=== PATIENT | female | born 1950 | race African-American/Black ===

== ENCOUNTER 2016-12-28 09:48 | Outpatient (CLI) | payer OTHER, BC | END 2016-12-28 20:12 | disposition home or self-care (01) | LOC: SMA 09:48 | DX: Z12.31 Encounter for screening mammogram for malignant neoplasm of breast (principal); M81.0 Age-related osteoporosis without current pathological fracture | CPT/HCPCS: G0202 ==

== ENCOUNTER 2018-03-30 09:07 | Outpatient (CLI) | payer OTHER, BC | END 2018-03-30 19:14 | disposition home or self-care (01) | LOC: SMA 09:07 | DX: Z12.31 Encounter for screening mammogram for malignant neoplasm of breast (principal) | CPT/HCPCS: 77067 ==

== ENCOUNTER 2019-04-04 09:51 | Outpatient (CLI) | payer OTHER, BC | END 2019-04-04 19:47 | disposition home or self-care (01) | LOC: SMA 09:51 | DX: Z12.31 Encounter for screening mammogram for malignant neoplasm of breast (principal) | CPT/HCPCS: 77067 ==

== ENCOUNTER 2020-05-23 09:51 | Outpatient (CLI) | payer OTHER, BC | END 2020-05-24 15:05 | disposition home or self-care (01) | LOC: SMA 09:51 | DX: Z12.31 Encounter for screening mammogram for malignant neoplasm of breast (principal) | CPT/HCPCS: 77067 ==

== ENCOUNTER 2020-09-17 10:14 | Outpatient (CLI) | payer OTHER, BC | END 2020-09-17 20:22 | disposition home or self-care (01) | LOC: SUS 10:14 | DX: N39.0 Urinary tract infection, site not specified (principal) | CPT/HCPCS: 76770 ==

== ENCOUNTER 2021-08-29 09:16 | Outpatient (CLI) | payer OTHER, BC | END 2021-08-29 17:00 | disposition home or self-care (01) | LOC: SMA 09:16 | PROVIDERS: ATTEND Family Medicine | DX: Z12.31 Encounter for screening mammogram for malignant neoplasm of breast (principal) | CPT/HCPCS: 77067 ==

== ENCOUNTER 2022-01-22 12:51 | Outpatient (CLI) | payer OTHER, BC | END 2022-01-22 20:09 | disposition home or self-care (01) | LOC: SRD 12:51 | PROVIDERS: ATTEND Family Medicine | DX: M21.6X1 Other acquired deformities of right foot (principal); M79.671 Pain in right foot ==

== ENCOUNTER 2022-11-19 09:48 | Outpatient (CLI) | payer OTHER, BC | END 2022-11-19 19:26 | disposition home or self-care (01) | LOC: SMA 09:48 | PROVIDERS: ATTEND Family Medicine | DX: Z12.31 Encounter for screening mammogram for malignant neoplasm of breast (principal) | CPT/HCPCS: 77067 ==

== ENCOUNTER 2023-12-02 10:45 | Outpatient (CLI) | payer OTHER, BC | END 2023-12-02 18:34 | disposition home or self-care (01) | LOC: SMA 10:45 | PROVIDERS: ATTEND Family Medicine | DX: Z01.818 Encounter for other preprocedural examination (principal); Z12.31 Encounter for screening mammogram for malignant neoplasm of breast; M17.12 Unilateral primary osteoarthritis, left knee; M19.012 Primary osteoarthritis, left shoulder; M19.011 Primary osteoarthritis, right shoulder; I70.0 Atherosclerosis of aorta; M47.814 Spondylosis without myelopathy or radiculopathy, thoracic region; R91.8 Other nonspecific abnormal finding of lung field | CPT/HCPCS: 71046; 77067 ==